=== PATIENT | male | born 1950 | race Caucasian/White ===

== ENCOUNTER 2019-08-06 14:11 | Inpatient (IN) | payer OTHER ==
[2019-08-06] VITALS (7 sets, daily range): BP systolic 152–169; BP diastolic 90–112
[~2019-08-06] VITALS: Ht 177.8 cm; Wt 94.3 kg
[2019-08-06 14:57] LABS: ABSOLUTE NEUTROPHILS 6.7 thou/uL (1.4-8.2); BASOPHILS 0.2 % (0.0-2.0); EOSINOPHILS 2.3 % (0.0-3.0); HEMATOCRIT 49.5 % (42.0-52.0); HEMOGLOBIN 16.6 gm/dL (14.0-18.0); MCH 30.1 pg (26.0-34.0); MCHC 33.6 g/dL (28.0-37.0); MCV 89.7 fL (80.0-100.0); PLATELET COUNT 146 thou/uL (150-400); POLYS 81.5 % (36.0-66.0); RBC 5.52 mil/uL (4.50-6.00); RDW 13.5 % (10.5-14.5); WBC 8.2 thou/uL (4.0-11.0)
[2019-08-06 14:58] LABS: URINE BILIRUBIN NEGATIVE (Negative); URINE BLOOD TRACE (Negative); URINE CLARITY CLEAR; URINE COLOR YELLOW; URINE GLUCOSE-RANDOM* TRACE (Negative); URINE KETONES NEGATIVE (Negative); URINE LEUKOCYTES-REFLEX NEGATIVE (Negative); URINE NITRITE-REFLEX NEGATIVE (Negative); URINE PROTEIN (DIPSTICK) TRACE (Negative); URINE UROBILINOGEN 0.2 E.U./dl (0.2-1.0)
[2019-08-06 15:41] LABS: CALCIUM 8.1 mg/dL (8.5-10.1); CREATININE 1.2 mg/dL (0.7-1.3); POTASSIUM 4.1 mmol/L (3.5-5.1)
[2019-08-06 15:51] LABS: ALBUMIN 3.3 g/dL (3.4-5.0); TOTAL BILIRUBIN 0.5 mg/dL (<0.1-1.0); TOTAL PROTEIN 7.3 g/dL (6.4-8.2); TROPONIN-I 0.29 ng/mL (<0.06)
[2019-08-06 18:21] LABS: PROTIME 10.6 Seconds (9.3-11.4)
--- NOTE | 2019-08-06 19:02 | NUR ---
REPORT GIVEN TO NIGHT RN
[2019-08-06 19:05] LABS: HEMATOCRIT 49.8 % (42.0-52.0); HEMOGLOBIN 16.4 gm/dL (14.0-18.0); MCH 29.4 pg (26.0-34.0); RBC 5.59 mil/uL (4.50-6.00); RDW 13.1 % (10.5-14.5); WBC 8.6 thou/uL (4.0-11.0)
[2019-08-07] VITALS (17 sets, daily range): BP systolic 114–171; BP diastolic 65–96
--- NOTE | 2019-08-07 00:40 | NUR ---
PT ARRIVED IN ICU FROM ER AT 2230 ON 08/06. HEPARIN GTT STOPPED SO LAB COULD DRAW APTT. APTT CRITICALLY HIGH. NOTIFIED MEDICAL EXAMINER AND PAUSED GTT FOR ONE HOUR, PER PROTOCOL. PT DENIES PAIN AND HAD NO COMPLAINTS AT THIS TIME. REPORT GIVEN TO KIERA AT 0030.
--- NOTE | 2019-08-07 04:36 | NUR ---
ASSUMED CARE OF PATIENT AT 0000. DENIES PAIN, SOA OR N/V. O2 SATS DROP SLIGHTLY WHILE SLEEPING, 2L NC PLACED FOR COMFORT. HEPARIN GTT INFUSING PER PROTOCOL. PATIENT DENIES ANY PRESCRIPTION MED USE. HAS TRAVELLED IN THE LAST FEW MONTHS. POC GOALS ESTABLISHED, WILL CONTINUE TO MONITOR.
--- NOTE | 2019-08-07 09:37 | EKG ---
[facility] [place] [address] ELECTROCARDIOGRAM REPORT Name: VILMA PAT Room #: 239-P ADM IN M.R.#: [id number] Admission: 08/06/19 Attend Phys: Kaye Navarro Discharge: Date of : 52 Report #: [id number] THIS REPORT FOR: cc: Rodney Mercer Kent DO Lundgren,Carl Glaser MD [facility] THIS REPORT FOR: //name// 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 : 1950 Requested By: An Mccoy Order Number: [id number] MD: Carl Landeros Measurements Intervals Kennedy Rate: 112 P: 33 CT: 164 QRS: -56 QRSD: 93 T: 18 QT: 319 QTc: 436 Interpretive Statements Sinus tachycardia Inferior infarct, old Poor R wave progression No previous ECG available for comparison Electronically Signed On 08-07-2019 9:35:58 MEDICAL CONSULTANT by Carl Landeros [email or web address] <ELECTRONICALLY SIGNED> By: Carl Landeros MD, [facility] 08/07/19 0935 1415 1415 Carl Landeros MD, [facility] /EPI
--- NOTE | 2019-08-07 10:08 | 2DMMODE ---
[facility] [place] [address] 2 D/M-MODE ECHOCARDIOGRAM Name: VILMA PAT Room #: 239-P ADM IN M.R.#: [id number] Admission: 08/06/19 Attend Phys: Kaye Navarro Discharge: Date of : 52 Report #: [id number] THIS REPORT FOR: cc: Rodney Mercer Kent DO Park, Jin S. MD ~ APPROVED REPORT Study performed: 08/07/2019 08:30:10 EXAM: Comprehensive 2D, Doppler, and color-flow Echocardiogram Patient Location: ICU Room #: 239 Status: routine BSA: 2.10 HR: 90 bpm BP: 165/89 mmHg Rhythm: NSR Other Information Study Quality: Technically Limited Technically limited study due to limited imaging windows. Indications Pulmonary Embolism 2D Dimensions IVC: 19.00 mm Volumes Left Atrial Volume (Systole) Single Plane 4CH: 32.76 mL Single Plane 2CH: 35.92 mL LA ESV Index: 19.00 mL/m2 Aortic Valve AoV Peak Wilber.: 1.19 m/s AO Peak Gr.: 5.65 mmHg LVOT Max P.80 mmHg LVOT Max V: 1.10 m/s Mitral Valve E/A Ratio: 0.6 MV Decel. Time: 284.43 ms MV E Max Wilber.: 0.71 m/s [facility] [employer] [place] [address] 2 D/M-MODE ECHOCARDIOGRAM Name: VILMA PAT Room #: 239-P ADM IN M.R.#: [id number] Admission: 08/06/19 Attend Phys: Kaye Spencer Discharge: Date of : 52 Report #: [id number] MV A Wilber.: 1.18 m/s MV PHT: 82.49 ms IVRT: 156.86 ms Pulmonary Vein P Vein S: 0.36 m/s P Vein A: 0.25 m/s P Vein D: 0.24 m/s P Vein A Dur.: 96.9 msec P Vein S/D Ratio: 1.50 Left Ventricle The left ventricle is normal size. There is normal LV segmental wall motion. There is normal left ventricular wall thickness. Left ventricular systolic function is normal. The left ventricular ejection fraction is within the normal range. LVEF is 55-60%. Grade I - abnormal relaxation pattern. Right Ventricle The right ventricle is normal size. The right ventricular systolic function is normal. Atria The left atrium size is normal. The right atrium size is normal. Aortic Valve The aortic valve is normal in structure. Mild aortic regurgitation. There is no aortic valvular stenosis. Mitral Valve The mitral valve is normal in structure. There is no mitral valve regurgitation noted. No evidence of mitral valve stenosis. Tricuspid Valve The tricuspid valve is normal in structure. There is no tricuspid valve regurgitation noted. Pulmonic Valve The pulmonary valve is normal in structure. There is no pulmonic valvular regurgitation. Great Vessels The aortic root is normal in size. IVC is normal in size and collapses >50% with inspiration. Pericardium There is no pericardial effusion. [facility] [address] [place] [address] 2 D/M-MODE ECHOCARDIOGRAM Name: VILMA PAT Manav Room #: 239-P [facility].#: [id number] Admission: 08/06/19 Attend Phys: Kaye Spencer Discharge: Date of : 52 Report #: [id number] <Conclusion> The left ventricle is normal size. There is normal left ventricular wall thickness. Left ventricular systolic function is normal. Grade I - abnormal relaxation pattern. The right ventricle is normal size. The left atrium size is normal. Mild aortic regurgitation. There is no mitral valve regurgitation noted. There is no tricuspid valve regurgitation noted. <ELECTRONICALLY SIGNED> By: Pratik Lennon MD 08/07/19 1007 1007 1007 Pratik Lennon MD /INF
--- NOTE | 2019-08-07 10:14 | NUR ---
CM ASSESSMENT: CASE OPENED FOR DC PLANNING. CLINICAL INFO REVIEWED. PT ADMIT AFTER EPISODE OF NEAR SYNCOPE AND PALPITATION. FOUND TO HAVE SADDLE EMBOLISM AND BILAT PE. PT REPORTS HE LIVES IN HOUSE WITH SPOUSE AND THEIR 2 LABRADOR RETRIEVERS. RETIRED, INDEPENDENT WITH ADLS AND HE AND SPOUSE SPLIT IADLS. PCP IS MARIANELA PAIGE IN [place]. NO IDENTIFIED CM NEEDS BUT AVAILABLE NEEDED FOR DC PLANNING.
--- NOTE | 2019-08-07 13:01 | NUR ---
PT REMAINS ON 2L NC WITH O2 SAT >98%. PT DENIES PAIN AT THIS TIME. DENIES ANY SOA OR TROUBLE BREATHING AT THIS TIME. PT SITTING UP IN CHAIR WATCHING TV. NEW ORDER GIVEN TO TRANSFER PT TO . AWAITING ROOM ASSIGNMENT. WILL CONTINUE TO MONITOR PT.
--- NOTE | 2019-08-07 18:00 | NUR ---
REPORT CALLED TO MAURICIO RN, PT TRANSFERRED TO ROOM 209. PT'S BELONGINGS SENT WITH PT. PT TAKEN TO CCU VIA WHEELCHAIR WITH NURSING STAFF. PT'S FRIEND ESCORTED PT OVER TO CCU WITH HIM.
--- NOTE | 2019-08-07 19:35 | NUR ---
ASSUMED CARE AT 1800, SHIFT ASSESSMENT DONE, ORDER ACKONWLEDGED. VSS. UP WITH STANDBY, DENIES PAIN, ROOM AIR. REPORT GIVEN TO NIGHT NURSE.
[2019-08-08 04:00] VITALS: BP 142/66
--- NOTE | 2019-08-08 06:12 | NUR ---
ASSESSMENT DOCUMENTED.PT BEEN RESTING IN NO ACUTE DISTRESS.VSS.ON HEPARIN DRIP PER DVT/PE PROTOCOL.TOLERATING.PT DENIES ANY NEEDS AT THIS TIME.WILL CONT TO MONITOR PER POC.
[2019-08-08 12:00] VITALS: BP 123/56
[2019-08-08 15:55] VITALS: BP 107/70
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
[2019-08-08 20:44] VITALS: BP 116/68
--- NOTE | 2019-08-09 03:33 | NUR ---
ASSESSMENT DOCUMENTED.PT BEEN RESTING IN NO ACUTE DISTRESS.A/OX4.VSS.REMAIN ON HEPARIN DRIP PER DVT/PE PROTOCOL,TOLERATING.AMBULATED ON THE HALLWAY SEVERAL TIMES BEFORE GOING TO BED,MAINTAINED OXYGEN SATURATIONS OF ABOVE 94%.DENIES SYNCOPE S/XS,OR DYSPNEA..PAIN MEDS GIVEN FOR PAIN W/RELIEF TO RIGHT BUTTOCK.NSR ON MONITOR,RA.PT PROGRESSING WELL TOWARDS DISCHARGE GOALS.WILL CCONT TO MONITOR PER POC.
[2019-08-09 04:09] VITALS: BP 118/58
[2019-08-09 04:26] LABS: HEMATOCRIT 39.7 % (42.0-52.0); MCH 29.5 pg (26.0-34.0); MCHC 32.8 g/dL (28.0-37.0); MCV 89.9 fL (80.0-100.0); RBC 4.42 mil/uL (4.50-6.00); RDW 13.6 % (10.5-14.5); WBC 6.5 thou/uL (4.0-11.0)
[2019-08-09 08:10] VITALS: BP 118/69
[2019-08-09 11:15] VITALS: BP 140/51
[2019-08-09 11:50] VITALS: BP 145/66
[2019-08-09 15:50] VITALS: BP 153/46
[2019-08-09 20:26] VITALS: BP 152/58
--- NOTE | 2019-08-10 03:51 | NUR ---
ASSUMED PT CARE AT 1900, PT IS ALERT AND ORIENTEDX4, PT IS SR ON THE MONITOR, DENIES CHEST PAIN AND SOB, COMPLAINS OF PAIN ON HIS BUTTOCK, MEDICATED WITH PRN PAIN MEDS, NO FURTHER COMPLAINS, VITAL SIGNS STABLE, ASSESSMENTS CHARTED, RESTED RESTING WELL, WILL CONTINUE TO MONITOR
[2019-08-10 05:31] VITALS: BP 122/67
[2019-08-10] MEDS ORDERED: CARDIZEM CD 18180 M3 PO (08:37)
[2019-08-10] MEDS ORDERED: ELIQUIS5 MG PO (08:37)
[2019-08-10 09:06] VITALS: BP 109/72
--- NOTE | 2019-08-10 11:11 | NUR ---
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 WILL MONITOR UNTIL HE LEAVES WITH FRIEND.
== END 2019-08-10 11:39 | disposition home or self-care (01) | DRG 299 ==
LOC: ER 14:11 → ICU 17:49 → EROBS 17:49 → ICU 22:25 → 2N 08-07 17:15 → ENTRNSPT 08-10 10:58 → EDTRNSPTSTS 08-10 10:59 → 2N 08-10 11:39
PROVIDERS: Physician Assistant; ADMIT Hospitalist
DX: I82.432 Acute embolism and thrombosis of left popliteal vein (principal); I26.99 Other pulmonary embolism without acute cor pulmonale; I26.92 Saddle embolus of pulmonary artery without acute cor pulmonale; E78.5 Hyperlipidemia, unspecified; R00.0 Tachycardia, unspecified; Z79.899 Other long term (current) drug therapy
CPT/HCPCS: 10078; 10081; 10203